=== PATIENT | male | born 1995 | race Two or more races ===

== ENCOUNTER 2025-04-13 14:41 | Emergency (ER) | payer SELFPAY ==
[~2025-04-13] VITALS: Ht 190.5 cm; Wt 110.1 kg
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
--- NOTE | 2025-04-13 16:23 | DVH ---
EXAM: CT HEAD WITHOUT CONTRAST INDICATION: head injury EXAM DATE: 04/13/2025 03:48 PM COMPARISON: None TECHNIQUE: CT of the head without intravenous contrast. Radiation Dose Information: CTDI volume is 65.30 mGy. Dose-length product is 1155.97 hello high mGy*c m FINDINGS: There is no evidence of acute intracranial hemorrhage, extra-axial collection, mass effect, midline s hift, herniation or hydrocephalus. The ventricles, sulci and cisterns are age appropriate. The martinez-w harman differentiation is intact. The visualized paranasal sinuses demonstrate complete opacification o f the left maxillary air cell. The mastoid air cells are clear. The surrounding soft tissues and osse ous structures are unremarkable. IMPRESSION: 1. No evidence of acute intracranial hemorrhage, mass effect or hydrocephalus. 2. Left maxillary air cell sinusitis. END IMPRESSION:
[2025-04-13 17:29] VITALS: BP 130/80; PULSE 85; RESP 15; TEMP 97; O2SAT 97
== END 2025-04-13 17:31 | disposition home or self-care (01) ==
LOC: ER 14:47
DX: S06.0XAA Concussion with loss of consciousness status unknown, initial encounter (principal); V89.9XXA Person injured in unspecified vehicle accident, initial encounter; Y93.89 Activity, other specified; Y92.89 Other specified places as the place of occurrence of the external cause; Y99.8 Other external cause status
CPT/HCPCS: 70450